=== PATIENT | female | born 1985 | race Caucasian/White ===

== ENCOUNTER 2020-08-06 08:14 | Outpatient (CLI) | payer OTHER ==
[~2020-08-06 08:14] MED LIST: PRENATAL1 TAB PO
== END 2020-08-06 08:22 | disposition home or self-care (01) ==
LOC: SONOGRAMA 08:14
PROVIDERS: ATTEND Pathology Anatomic Pathology & Clinical Pathology
DX: E03.8 Other specified hypothyroidism (principal)